=== PATIENT | male | born 1935 | race Caucasian/White ===

== ENCOUNTER → 2020-05-10 09:24 | Outpatient (BNVA) | payer MEDICARE, OTHER, SELFPAY | PROVIDERS: Family Provider Family Medicine; PCP Family Medicine; Visit Provider Urology | DX: C61 Malignant neoplasm of prostate (principal); C67.9 Malignant neoplasm of bladder, unspecified; I48.91 Unspecified atrial fibrillation; Z79.01 Long term (current) use of anticoagulants; Z85.46 Personal history of malignant neoplasm of prostate | CPT/HCPCS: 81003; 84153 ==

== ENCOUNTER → 2020-06-01 10:29 | Outpatient (BNVA) | payer MEDICARE, OTHER, SELFPAY | PROVIDERS: Family Provider Family Medicine; PCP Family Medicine; Visit Provider Urology | DX: C67.9 Malignant neoplasm of bladder, unspecified (principal); Z01.810 Encounter for preprocedural cardiovascular examination | CPT/HCPCS: 87635 ==

== ENCOUNTER 2020-06-05 15:49 | Observation (INO) | payer MEDICARE, OTHER, SELFPAY ==
[2020-06-01 11:22] VITALS: BMI 32.2
--- NOTE | 2020-06-01 11:32 | ECG_ITS ---
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 Measurements Intervals [place] Rate: 53 P: NV: QRS: 35 QRSD: 103 T: 33 QT: 405 QTc: 382 Interpretive Statements Possible ATRIAL FLUTTER/TACHYCARDIA WITH SLOW VENTRICULAR RESPONSE ABNORMAL RHYTHM ECG Compared to ECG 04/23/2017 16:22:55 Atrial fibrillation no longer present ST (T wave) deviation no longer present Electronically Signed On 06-01-2020 20:43:32 CDT by Neyda Toney M.D. [id number]
--- NOTE | 2020-06-01 11:56 | ANES.PREANE2 ---
Pre-Anesthetic Assessment Pre-Anesthetic Assessment: Height/Weight: Height 1.88 m Weight 113.852 kg Preop Diagnosis: Recurrent bladder cancer Proposed Procedure: Operation Date: 06/05/20 17:00 Proposed Procedures p Cystoscopy 89011 C67.9(Not Applicable) - Stevenson De Los Santos MD s Transurethral Resection Bladder Tumor(Not Applicable) - Stevenson De Los Santos MD Familial anesthetic complications: none Social: Social History: Alcohol (2 glasses wine daily) and No tobacco Exam: Pre-Anes Outpt Exam: alert, oriented x 3, clear to auscultation bilaterally and regular rate & rhythm (irreg with Afib rate 53 on EKG) Airway: Submandibular: WNL Cervical ROM: WNL MP: 2 Dentition: Caps and Full Pulmonary: Pulmonary: COPD, NICHOLS, Sleep apnea (cpap) and SOB CV/HEM: CV/HEM: Afib and HTN : : None reported (recurrent bladder tumor) Hepatic: Hepatic: None reported GI: GI: None reported Metabolic: Metabolic: None reported Musc/skel: Musc/skel: Lower Back Pain and OA/DJD Comments: pt on prednisone daily for 1 year Neuropsych: Neuropsych: None reported Anesthetic Plan: ASA status: 3 Anesthesia: Anesthesia Evaluation and General Risk of > 500 ml blood loss (7ml/kg in children): No PFSH Anesthesia PFSH: Medical History Anticoagulant long-term use Arthritis Atrial fibrillation Carotid stenosis, bilateral COPD (chronic obstructive pulmonary disease) Dyslipidemia H/O prostate cancer Transitional cell bladder cancer Surgical History S/P repair of hydrocele Family History Father , AGE 66 Cancer Social History Smoking and tobacco status: former smoker Alcohol intake: current Household members: spouse Marital status: service: Yes branch: [employer] Data Anesthesia Cardiac Studies: No Data to Display
[2020-06-05] VITALS (18 sets, daily range): BP systolic 145–193; BP diastolic 56–103; PULSE 52–101; RESP 14–20; TEMP 36.2–36.9; O2SAT 92–96
[2020-06-05] MEDS: sodium chloride 0.9% 1,000 ML 30 ML IV (11:49)
--- NOTE | 2020-06-05 12:13 | P.ANESUD_ITS ---
Pre-Anesthetic Update Pre-Anesthetic Assessment: Date of Surgery/Procedure: 06/05/20 Preop Mackenzie gnosis: Recurrent bladder cancer Proposed Procedure: Operation Date: 06/05/20 12:50 Proposed Procedures p Cystoscopy 43981 C67.9(Not Applicable) - Stevenson De Los Santos MD s Transurethral Resection Bladder Tumor(Not Applicable) - Stevenson De Los Santos MD Any changes to Pre-Anesthetic Assessment?: No Last Intake: Intake Last Liquid Date 06/05/20 Last Liquid Time 07:00 Last Solid Date 06/04/20 Last Solid Time 19:00 Vitals: Temperature 97.3 F L 06/05/20 11:45 Temperature Source Tympanic 06/05/20 11:45 Pulse Rate 69 06/05/20 11:45 Respiratory Rate 18 06/05/20 11:45 Blood Pressure 186/96 06/05/20 11:45 Blood Pressure Vee n 126 06/05/20 11:45 Pulse Oximetry 96 06/05/20 11:45 Oxygen Delivery Me thod 06/05/20 11:54 Exam: Pre-Anes Outpt Exam: alert, oriented x 3, clear to auscultation bilaterally and regular rate & rhythm Cardiac Studies: No Data to Display
--- NOTE | 2020-06-05 14:26 | P.HPUD_ITS ---
Surgery/Procedure H&P Update DATE OF PROCEDURE: June 05, 2020 DATE H&P PERFORMED: 05/26/20 H&P UPDATE INFORMATION: I have reviewed H&P completed within last 30 days, I have examined patient prior to procedure, No changes to prior documentation and H&P is in [facility] [place] EMR on date indicated CHANGES TO PREVIOUS DOCUMENTATION: Off of aspirin and Eliquis as instructed. PREOP DIAGNOSIS: Recurrent bladder cancer PLANNED PROCEDURE: Operation Date: 06/05/20 12:50 Proposed Procedures p Cystoscopy 84484 C67.9(Not Applicable) - Stevenson De Los Santos MD s Transurethral Resection Bladder Tumor(Not Applicable) - Stevenson De Los Santos MD
--- NOTE | 2020-06-05 14:38 | PM.OP ---
Operative Report Date of procedure: June 05, 2020 Pre-op Diagnosis: Recurrent bladder cancer Post-op diagnosis: same Procedure Done: Cystoscopy transurethral resection of bladder tumor/fulguration of extension into the prostate Pathology: Bladder tumor sampling Surgeon: Magali Anesthesia: General Estimated blood loss: Minimal Urine output: Not measured Complications: None Findings: 1 small tumor on the posterior floor cephalad and medial to the left ureteral orifice Fairly extensive involvement of the bladder neck and the more proximal half of the prostatic tissue circumferentially with transitional cell carcinoma papillary changes. All visible tumor was resected or fulgurated. Resection was limited to roughly the proximal half of the prostate trying to avoid dissection closer to the membranous urethra/verumontanum. Thankfully there was no obvious tumor in those areas. Brief History: Dilip is a very pleasant 84-year-old white male with a history of bladder cancer diagnosed March 2013 with pathology demonstrating low-grade noninvasive TCCA/papilloma lateral to the left ureteral orifice. Placed on surveillance cystoscopy program with no evidence of recurrence for many years. His interval was extended and recently on a 2-year surveillance cystoscopy was found to have a fairly large area of recurrence that involve the bladder neck extending into the prostatic fossa and the mucosa. It appeared to be well differentiated but fairly extensive involvement of the mucosa within the prostatic lumen. Admitted now for TURBT. Procedure: After routine preoperative evaluation examination and obtaining of informed consent he was taken to the operating suite on 06/05/2020 where general anesthesia was administered without difficulty after appropriate timeout was performed, SCDs confirmed to be functioning, preoperative antibiotics administered, beta-ty protocol confirmed. Prepped and draped in usual sterile fashion in dorsolithotomy position paying careful attention to avoiding pressure points. 21 Togolese cystoscope with 30 degree lens was introduced into the urethra meatus and advanced into the bladder under videoscopy. The bladder was examined with both 30 and 70 degree lenses. FINDINGS: The papillary tumor involves circumferential bladder neck extending into the prostatic lumen approximately half the distance toward the verumontanum. Distal to that distinction the mucosa appeared to be normal. It did not involve the verumontanum and none of the work described below was distal to that demarcation. There was also a small tumor in the bladder proper medial and cephalad to the left ureteral orifice. The urethra was then calibrated with Miller sounds and easily accommodated 30 Togolese. 2% lidocaine jelly was instilled into the urethra and a 25 Togolese continuous-flow resectoscope sheath with visual obturator was advanced into the bladder without difficulty. Landmarks were again ascertained. Super loop was utilized to thinly resect the bladder neck tumor on the posterior floor it appeared to extend deeper than just the mucosa. Resection was carried out enough to fully excise all visualized tumor. The circumferential involvement was completely resected. The button probe was then utilized to fulgurate and vaporized to some degree the mucosa/submucosal tissue in the prostatic fossa again avoiding resection much distal to the roughly shelter point at the demarcation of more normal and abnormal mucosa. The resection was more tenuous than usual to avoid the risk of deeply resecting irradiated prostate tissue (and the inherent risk of increased incontinence) but resecting enough to feel confident incomplete excision. The button probe was also utilized to completely fulgurate the small well differentiated appearing papillary tumor lateral and cephalad to the left ureteral orifice. All chips were evacuated from the bladder. The specimen sent for pathologic evaluation. Meticulous hemostasis was obtained. Final inspection showed no specimens remaining in the bladder and hemostasis. Bladder was drained with a 20 Togolese three-way Martinez catheter with 30 cc in the balloon. CBI was initiated with light irrigation. He tolerated procedure well without complications and was awakened in the operating room and returned to the recovery room in stable condition. FINDINGS: 1. All visualized tumor was completely resected or fulgurated. 2. The resection did not extend beyond the mid prostatic point at which point the mucosa of became normal. 3. Bladder drained with Martinez catheter.
[2020-06-05] MEDS: lidocaine 2% Urojet 20 mL TOPICAL (14:59)
[2020-06-05] MEDS: metoprolol tartrate 25 mg Tablet PO (16:21)
[2020-06-05] MEDS: ipratropium-albuterol 3 mL Neb INHALATION ×2 (16:43→20:24)
--- NOTE | 2020-06-05 17:03 | ANE.PACU2 ---
Inpatient post-anesthesia follow up: Airway intact: Yes Vital signs: Temperature 97.1 F Pulse Rate 74 Respiratory Rate 18 Blood Pressure 182/90 Pulse Oximetry 93 Oxygen Delivery Me thod Room Air Oxygen Flow Rate 6 Fraction of Inspir ed Oxygen Hydration adequate: Yes Nausea and vomiting: No Pain level: 2 Mental status: Baseline
[2020-06-05] MEDS: amlodipine 5 mg Tablet PO (17:18)
--- NOTE | 2020-06-05 19:04 | PC.NURSE ---
shift summary patient received from pacu, about 250ml left in first cbi bag. this was infused and the next bag started at 1900. patient has had a total of 850 out totalling 600 urine output. urine clear slight blood tinge noted. cbi fluids barely dripping at this time. patient has had no pain at this time, resting in bed. call light within reach. bedside report given to Domonique CURTIS, and Ruby CURTIS
[2020-06-05] MEDS: ceFAZolin 1,000 MG in sodium chloride 0.9% (plus) 50 ML 100 MG IV (23:39)
--- NOTE | 2020-06-06 03:42 | PC.NURSE ---
CBI Patient placed call light on to notify nurse that the bed was wet. Observed catheter/CBI tubing and CBI was disconnected from the catheter. Patient stated that he thought the catheter was filling up so he attempted to unclamp the irrigation to speed up the flow. Discussed the importance of alerting the nurse with any concerns, and not titrating his own CBI. Urine remained clear yellow without any clots or sediment. Reconnected CBI at a very slow drip rate. Due to the above, unable to determine how much irrigation the patient actually received.
[2020-06-06 03:50] VITALS: BP 169/73; PULSE 50; RESP 18; TEMP 37.1; O2SAT 94
[2020-06-06] MEDS: ceFAZolin 1,000 MG in sodium chloride 0.9% (plus) 50 ML 100 MG IV (06:03)
--- NOTE | 2020-06-06 07:21 | PC.NURSE ---
MITOMYCIN DR MONTEJO AT SIDE TO INJECT RODRIGUEZ CATHETER WITH MITOMYCIN -
--- NOTE | 2020-06-06 07:47 | P.PCN_ITS ---
Other Information: MITOMYCIN INTRAVESICAL instillation 40 mg of mitomycin instilled into the bladder for 1 hour. Atraumatic. Tolerated well. Coding Level of Care Code Acute Shearing Machine Tender for Carisa Edge
--- NOTE | 2020-06-06 07:47 | P.DS_ITS ---
Discharge Providers Date of Admission: 06/05/20 15:49 Date of Discharge: June 06, 2020 Attending Provider at Admission: Stevenson De Los Santos MD Attending Provider at Discharge: Stevenson De Los Santos MD Primary Care Provider: Juanito Clayton DO Diagnoses at Discharge Discharge Diagnosis (1) Transitional cell bladder cancer: Status: Acute Permanent problem details: Recurrent TCCA involving the proximal one half of the prostate and bladder neck. (2) Atrial fibrillation: Status: Acute (3) COPD (chronic obstructive pulmonary disease): Status: Acute (4) H/O prostate cancer: Status: Acute Reason for Visit Reason for Visit: cystoscopy Physical Exam Const: COMMON NORMALS: no acute distress and alert GENERAL APPEARANCE: well kempt and well developed ORIENTATION/CONSCIOUSNESS: not confused HENMT: COMMON NORMALS: normocephalic and atraumatic HEAD & SCALP: normocephalic and atraumatic Eye: COMMON NORMALS: conjunctivae normal and no scleral icterus CONJUNCTIVA: Yes conjunctivae normal Neck/C-Spine: COMMON NORMALS: full ROM GENERAL: Yes normal visual inspection Resp: COMMON NORMALS: normal respiratory effort EFFORT & INSPECTION: No labored and No Actively coughing : BLADDER/KIDNEY EXAM: Yes bladder normal to palpation PENIS: normal penis MEATUS: meatus normal Extremity: COMMON NORMALS: no clubbing, cyanosis or edema Neuro: COMMON NORMALS: no focal motor deficits SENSORIUM/ORIENTATION: Yes alert Psych: COMMON NORMALS: mental status grossly normal, Normal thought process present and cooperative APPEARANCE: Yes grossly normal and Yes well kempt ATTITUDE: Yes calm and Yes engaged THOUGHT PROCESS: Normal thought process present Skin: COMMON NORMALS: no rashes or lesions noted and no jaundice GENERAL SKIN EXAM: no rashes or lesions noted Urinary Catheter Management^: 3-way Urethral CBI: Cath Placed During This Visit: yes Reason for Continuing Indwelling Catheter: Other Urinary Catheter Date of Insertion: 06/05/20 Urinary Catheter Time of Insertion: 15:20 Discharge Data Data Completed and Pending: Pending at discharge Category Date Time Status Pathology: Surgic al [PTH] Routine Pth 06/05/20 15:40 Ordered Vitals: Last Vital Signs Temp 98.7 F 06/06/20 03:50 Pulse 50 L 06/06/20 03:50 Resp 18 06/06/20 03:50 BP 169/73 06/06/20 03:50 Pulse Ox 94 06/06/20 03:50 Discharge Plan Discharge Patient Disposition: Home Condition: Stable Prescriptions: Continued amlodipine 5 mg tablet 5 mg PO DAILY RF: 0 metoprolol tartrate 25 mg tablet 25 mg PO BID RF: 0 prednisone 10 mg tablet 5 - 10 mg PO DAILY RF: 0 albuterol sulfate [ProAir HFA] 90 mcg/actuation HFA aerosol inhaler 2 puff INHALATION Q6H PRN (Reason: Shortness Of Breath) RF: 0 rosuvastatin [Crestor] 40 mg tablet 20 mg PO DAILY RF: 0 ipratropium-albuterol 0.5 mg-3 mg(2.5 mg base)/3 mL solution for nebulization 3 ml INHALATION QID PRN (Reason: Shortness Of Breath) RF: 0 Held Eliquis 5 mg tablet 5 mg PO BID RF: 0 Hold Instructions: Resume on 06/11/20. aspirin [Aspir-81] 81 mg tablet,delayed release (DR/EC) 81 mg PO DAILY RF: 0 Hold Instructions: Resume on 06/11/20. Discharge Orders: Discharge Order (Routine); Ordered 06/06/20 Ordered By: Stevenson De Los Santos Referrals: Stevenson De Los Santos MD [Physician] - 06/08/20 (Voiding trial In 2 months we will do our first surveillance cystoscopy.) Discharge Diet: Usual diet Discharge Activity: Limit activity as instructed Activity Restrictions/Additional Instructions: 1. No lifting >10 pounds for 3 weeks at least. 2. I will see you in the office on for voiding trial. 3. Your first surveillance cystoscopy will be planned for about 2 months. 4. Please call if you have any concerns or questions. The hospital electric pile driver operator can reach me after hours. Discharge Attestations Time Spent in Discharge Care*: less than 30 min Quality Metrics Clinical Quality Measures During this hospital stay, did patient experience: None Coding Level of Care Code Acute Chg FW AR note Diagnoses Transitional cell bladder cancer C67.9 Atrial fibrillation I48.91 COPD (chronic obstructive pulmonary disease) J44.9 H/O prostate cancer Z85.46
[2020-06-06 07:51] VITALS: BP 168/74; PULSE 88; RESP 18; TEMP 36.5; O2SAT 96
[2020-06-06] MEDS: metoprolol tartrate 25 mg Tablet PO (08:20)
[2020-06-06] MEDS: atorvastatin 40 mg Tablet 80 MG PO (08:20)
[2020-06-06] MEDS: predniSONE 10 mg Tablet PO (08:20)
[2020-06-06] MEDS: ipratropium-albuterol 3 mL Neb INHALATION (09:10)
--- NOTE | 2020-06-06 09:11 | PC.NURSE ---
[address] MONTEJO ORDER - OVI WELL
[2020-06-06 09:12] VITALS: PULSE 61; RESP 16; O2SAT 96
--- NOTE | 2020-06-06 10:28 | PC.NURSE ---
EDUCATION EDUCATION GIVEN TO PATIENT REGARDING LEG BAG AND LARGE BAG - PT VERBALIZES UNDERSTANDING OF CATHETER CARE AND CHANGING BAGS
[2020-06-06 11:18] VITALS: PULSE 61; RESP 16; O2SAT 96
--- NOTE | 2020-06-07 18:06 | PC.RESP ---
Pulmonary Rehab information sent to patient.
== END 2020-06-06 11:19 | disposition home or self-care (01) ==
LOC: MEDSURG 15:49
PROVIDERS: Admitting Provider Urology; PCP Family Medicine; Visit Provider Urology
PROC: 0TJB8ZZ Inspection of Bladder, Via Natural or Artificial Opening Endoscopic (ICD-10-PCS; CPT 52000; principal; 2020-06-05 12:40)
PROC: 0TBB8ZZ Excision of Bladder, Via Natural or Artificial Opening Endoscopic (ICD-10-PCS; CPT 51720; 2020-06-05 12:40)
DX: C67.9 Malignant neoplasm of bladder, unspecified (principal); I48.91 Unspecified atrial fibrillation; J44.9 Chronic obstructive pulmonary disease, unspecified; Z85.46 Personal history of malignant neoplasm of prostate; G47.30 Sleep apnea, unspecified; I10 Essential (primary) hypertension; Z79.52 Long term (current) use of systemic steroids; Z87.891 Personal history of nicotine dependence
CPT/HCPCS: 51720; 52235; 88305; 93005; 94640; 94664; G0378; J0690; J1100; J2405; J2704; J2710; J3010; J3490; J7030; J7512; J9280

== ENCOUNTER 2020-06-21 09:59 | Outpatient (CLI) | payer MEDICARE, OTHER, SELFPAY ==
--- NOTE | 2020-06-21 10:04 | USCV_ITS ---
Audreyambrose Cherry Age: 84 Gender: M : 1935 Exam Date: 06/21/2020 10:18 Ordering Phys: Hardeep King M.D ([email or web address]) Technologist: Exam Location: [facility] Indication: HX CCA STENOIS Risk Factors: None Previous Vascular Surgery: Right Brachial BP: / Left Brachial BP: / Right Left Velocity (cm/s) Spectral Plaque Velocity (cm/s) Spectral Plaque Syst/Diast Broadening Syst/Diast Broadening 55.90/ 7.80 Prox CCA 62.50 / 15.40 52.80/ 10.10 Hetro Mid CCA 60.60 / 12.50 Hetro 51.30/ 8.50 Hetro Distal CCA 65.40 / 10.60 Hetro 134.70/26.10 Hetro Prox ICA 423.80/ 82.80 Hetro 161.80/29.60 Hetro Mid ICA 396.30/ 104.30 Hetro 76.20/ 17.10 Distal ICA 91.40 / 21.80 199.00 ECA 175.30 2.89 ICA/CCA 6.48 Antegrade Vertebral Antegrade 40.10/ 9.90 cm/s 42.50/ 11.90 cm/s Bi Subclavian Bi 119.2 82.50 0 FINDINGS Comparison:. 10/13/17. Significant progression of carotid stenosis since 2018. Diffuse bilateral scattered calcified plaque and intimal thickening throughout the common carotid arteries and extending through the bifurcation. Irregular plaque with elevation of velocity, greatest on the left. Antegrade vertebral arteries. CONCLUSIONS Left ICA stenosis 70-99%. Significant progression of stenosis. since 2018. Right ICA stenosis 50-69%. Dr. Carla Polo DO (Electronically Signed) Final Date: 21 June 2020 15:30 S
== END 2020-06-21 10:00 | disposition home or self-care (01) ==
LOC: RAD 10:02
PROVIDERS: PCP Family Medicine; Visit Provider Internal Medicine
DX: I65.23 Occlusion and stenosis of bilateral carotid arteries (principal)
CPT/HCPCS: 93880

== ENCOUNTER 2020-06-27 08:17 | Outpatient (CLI) | payer MEDICARE, OTHER, SELFPAY ==
--- NOTE | 2020-06-27 08:30 | CT_ITS ---
WS: [id number] CT ANGIOGRAM CEREBRAL AND CAROTID ARTERIES HISTORY: I65.23 - Occlusion and stenosis of bilateral carotid arteries TECHNIQUE: CT angiogram is performed of the carotid and cerebral arteries. During arterial injection imaging is obtained from the skull vertex to the aortic arch in 1.25 mm imaging. Coronal and sagittal reformats are submitted. Additional multi planar reformats of the carotid and cerebral arteries are submitted, MIP imaging also reviewed. NASCET criteria utilized. All CT scans at [facility] use at least one of these dose optimization techniques: automated exposure control; mA and/or kV ad justment per patient size (includes targeted exams where dose is matched to clinical indication); or iterative reconstruction. CONTRAST: Omnipaque 350; 95 mL IV. DLP: 2380.51 mGycm COMPARISON: 11/07/2014 and 06/21/[address] head is first performed. There is no hemorrhage. Mild atrophy and chronic ischemic dis ease. Carotid Angiogram: Right carotid: Common carotid artery: Small amount of calcified plaque in the carotid artery. No stenosis. Internal carotid artery: Moderate calcified plaque at the bifurcation causing a mild stenosis. Calcul ated stenosis 37%. External carotid artery: Calcified plaque in the proximal external carotid artery. No occlusion. Left carotid: Common carotid artery: Arises normally from the aorta. No significant plaque or stenosis. Internal carotid artery: Heavy calcified plaque and intimal thickening at the bifurcation extending i nto the proximal internal and external arteries. Calcified plaque at the bifurcation with a calculate d stenosis of 64%. External carotid artery: Moderate calcified plaque proximally. Right vertebral artery: Focal calcified plaque at the origin of the RIGHT vertebral artery consistent with high-grade stenosis. There is no complete stenosis. Small caliber RIGHT vertebral artery as com pared to the LEFT. Left vertebral artery: Mild scattered calcified plaque. Dominant vertebral artery. Subclavian arteries: Mild bilateral atherosclerosis. No occlusions. Upper thorax: Mild biapical pleural thickening and scarring. 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 Osseous structures: Moderate cervical spondylosis. No destructive bone lesions. CEREBRAL ANGIOGRAM: Intracranial vertebral arteries: Small caliber distal RIGHT vertebral artery but it is patent. Very t iny luminal diameter distally. Dominant LEFT vertebral artery. Basilar artery: No significant stenosis or occlusion. No aneurysm. Intracranial Internal carotid arteries: Calcified plaque in the intracranial carotid arteries. No hig h-grade stenosis. Middle cerebral arteries: Normal. Anterior cerebral arteries and ACOM: Normal. Posterior cerebral arteries and PCOM's: Normal. Dural venous sinuses are normally enhancing. Mastoid air cells: Normal. Paranasal sinuses: Normal. Calvarium: Normal. CT/CT angio headneck* [id number] IMPRESSION: 1. Moderate stenosis with calcified plaque at the LEFT extracranial carotid bi furcation and proximal ICA. Stenosis calculated at 64%. Visually the stenosis a ppears slightly greater than 64%. 2. Mild stenosis at the RIGHT ICA at 37%. 3. Mild intracranial atherosclerosis in the carotid arteries but no high-grade stenosis or occlusions. 4. High-grade stenosis involving the origin of the RIGHT vertebral artery alth ough there is no occlusion. The distal RIGHT vertebral artery is very small dipti iber but patent.
[2020-06-27 09:01] LABS: Blood Urea Nitrogen 17 mg/dL (8-23)
[2020-06-27] MEDS: iohexol 350 mg/mL 100 mL Btl IV (09:15)
== END 2020-06-27 08:18 | disposition home or self-care (01) ==
LOC: RADWPI 08:23
PROVIDERS: PCP Family Medicine; Visit Provider Internal Medicine
DX: I65.23 Occlusion and stenosis of bilateral carotid arteries (principal)
CPT/HCPCS: 70496; 70498; 82565; 84520; Q9967

== ENCOUNTER → 2020-08-08 11:22 | Outpatient (BNVA) | payer MEDICARE, OTHER, SELFPAY | PROVIDERS: PCP Family Medicine; Visit Provider Urology | DX: C67.9 Malignant neoplasm of bladder, unspecified (principal); R82.81 Pyuria | CPT/HCPCS: 81003; 87077; 87086; 87184 ==

== ENCOUNTER → 2020-11-08 10:17 | Outpatient (BNVA) | payer MEDICARE, OTHER, SELFPAY | PROVIDERS: PCP Family Medicine; Visit Provider Urology | DX: C67.9 Malignant neoplasm of bladder, unspecified (principal) | CPT/HCPCS: 81003 ==

== ENCOUNTER 2021-01-22 09:20 | Outpatient (CLI) | payer MEDICARE, OTHER, SELFPAY ==
--- NOTE | 2021-01-22 09:30 | USCV_ITS ---
Dilip Will Age: 85 Gender: M : 1935 Exam Date: 01/22/2021 10:07 Ordering Phys: Junito Parks MD (Andy) ([email or web address] [place]) Technologist: IVAN Exam Location: [facility] Indication: occlusion or stenois of bilateral carotid arteries Risk Factors: Previous Vascular Surgery: Right Brachial BP: / Left Brachial BP: / Right Left Velocity (cm/s) Spectral Plaque Velocity (cm/s) Spectral Plaque Syst/Diast Broadening Syst/Diast Broadening 86.00/ 16.50 Prox CCA 71.60 / 12.90 67.30/ 9.90 Mid CCA 44.40 / 10.30 59.80/ 14.00 Distal CCA 45.70 / 9.00 Hetro 110.30/20.90 Hetro Prox ICA 257.70/ 52.60 Hetro 116.90/24.30 Mid ICA 206.60/ 21.80 75.00/ 18.70 Distal ICA 59.00 / 20.50 242.90 ECA 110.20 1.74 ICA/CCA 4.65 Antegrade Vertebral Antegrade 32.90/ 7.90 cm/s 54.70/ 14.50 cm/s Tri Subclavian Tri 88.70 87.20 FINDINGS Comparison 06/21/20 CONCLUSIONS Right ICA stenosis <50%. Mild atheromatous plaque right carotid bulb/ICA. Left ICA stenosis 70-99%. Moderate atheromatous plaque left carotid bulb/ICA. ICA velocities have decreased bilaterally compared to previous. Left ICA stenosis remains above 70%. This could be further evaluated with CTA Normal antegrade Doppler flow noted in the right vertebral artery. Normal antegrade Doppler flow noted in the left vertebral artery. Diego Calvo MD (Electronically Signed) Final Date: 22 January 2021 16:42 S
== END 2021-01-22 09:21 | disposition home or self-care (01) ==
LOC: RAD 09:27
PROVIDERS: PCP Family Medicine; Visit Provider Thoracic Surgery (Cardiothoracic Vascular Surgery)
DX: I65.23 Occlusion and stenosis of bilateral carotid arteries (principal)
CPT/HCPCS: 93880

== ENCOUNTER → 2021-03-20 09:04 | Outpatient (BNVA) | payer MEDICARE, OTHER, SELFPAY | PROVIDERS: PCP Family Medicine; Visit Provider Urology | DX: C67.9 Malignant neoplasm of bladder, unspecified (principal); Z85.46 Personal history of malignant neoplasm of prostate | CPT/HCPCS: 81003 ==

== ENCOUNTER → 2021-07-19 09:17 | Outpatient (BNVA) | payer MEDICARE, OTHER, SELFPAY | PROVIDERS: PCP Family Medicine; Visit Provider Urology | DX: C67.9 Malignant neoplasm of bladder, unspecified; Z85.46 Personal history of malignant neoplasm of prostate | CPT/HCPCS: 52000; 81003; 99212 ==

== ENCOUNTER 2021-09-07 19:45 | Emergency (ER) | payer OTHER, MEDICARE, SELFPAY ==
[2021-09-07 20:01] VITALS: BP 134/72; PULSE 68; RESP 16; TEMP 36.6; O2SAT 94
--- NOTE | 2021-09-07 23:22 | ED_ITS ---
Documented by User: DAVID Raygoza 09/09/21 00:00 HPI - Wound/Laceration General: Chief Complaint: Wound/Laceration Stated Complaint: VERICOSE VEIN REP Time Seen by Provider: 09/07/21 22:33 History of Present Illness: Patient is 86-year-old male who comes to the ED with varicose vein bleeding on left lower extremity. Patient says he was doing a shower earlier today and was scrubbing his leg and scrubbed too hard against a large varicose vein causing it ruptures are bleeding. Patient takes Eliquis daily. He describes there being some pulsatile bleeding from his leg but he finally was able to control once he applied a pressure bandage. Associated symptoms: Denies chills, fever(s), nausea or vomiting Review of Systems Const: Denies: fever(s), chills or fatigue Eyes: Denies: change in vision or eye discomfort ENMT: Denies: throat pain, odynophagia, nasal discharge or nasal congestion Card: Denies: chest pain, palpitations, edema, swelling of feet/ankles, dyspnea on exertion or orthopnea Resp: Denies: dyspnea, productive cough or non-productive cough GI: Denies: abdominal pain, nausea, vomiting, diarrhea, constipation or hematochezia : Denies: flank pain, difficulty urinating, dysuria or hematuria Musc: Denies: neck pain, back pain or extremity swelling Skin/Breast: Reports: other (Actively bleeding varicose swelling on the left lower leg); Denies: rash or new lesions Neuro: Denies: headache(s), numbness in extremities or weakness in extremities PFSH ED PFSH: Medical History Anticoagulant long-term use Arthritis Atrial fibrillation Carotid stenosis, bilateral COPD (chronic obstructive pulmonary disease) Dyslipidemia H/O prostate cancer 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 Surgical History S/P repair of hydrocele Family History Father , AGE 66 Cancer Social History Smoking and tobacco status: former smoker Quit status (tobacco): has quit using tobacco Year quit tobacco: 1977 Alcohol intake: current Alcohol intake frequency: 0-2 Drinks per Day Alcohol type: wine Household members: spouse Marital status: service: Yes branch: [employer] Current occupational status: retired History of recent travel: No Physical Exam Const: COMMON NORMALS: no acute distress, patient oriented x3 and alert GENERAL APPEARANCE: cooperative and comfortable HENMT: COMMON NORMALS: normocephalic HEAD & SCALP: normocephalic MOUTH: Normal oral and palatal mucosa present THROAT: posterior oropharynx normal and uvula midline Neck/C-Spine: COMMON NORMALS: supple GENERAL: Yes normal visual inspection Resp: COMMON NORMALS: normal respiratory effort, No retractions, No use of accessory muscles and clear to auscultation bilaterally AUSCULTATION: clear to auscultation bilaterally Cardio: COMMON NORMALS: regular rate, regular rhythm, S1 normal heart sound present, S2 normal heart sound present, No gallops present (Cardio), No clicks present (Cardio), No murmurs present (Cardio) and Peripheral pulses 2+ throughout RATE: regular rate RHYTHM: regular rhythm HEART SOUNDS: S1 normal heart sound present and S2 normal heart sound present PERIPHERAL PULSES: Peripheral pulses 2+ throughout GI: COMMON NORMALS: Normal to inspection, nondistended, normoactive bowel sounds present, Soft to palpation, non-tender and no masses PALPATION: Yes Soft to palpation : COMMON NORMALS: Yes no CVA tenderness BLADDER/KIDNEY EXAM: Yes no CVA tenderness Back/Pelvis: COMMON NORMALS: no CVA tenderness Extremity: NARRATIVE EXTREMITY EXAM: Left lower leg?medial aspect of left lower leg patient has a bleeding and ruptured varicose vein. It is actively bleeding and continues bleeding even after pressure bandage applied. GENERAL: Yes normal exam except as noted Neuro: COMMON NORMALS: patient oriented x3 and moves all extremities SENSORIUM/ORIENTATION: Yes alert Skin: GENERAL SKIN EXAM: dry skin Procedures Laceration Laceration 1: Site: lower extremity (Medial aspect of left lower leg) Side (If applicable): left Size (cm): 0.5 Description: linear (Ruptured varicose vein) Depth: simple, single layer Local Anesthetic: lidocaine 1% and with epi Amount of anesthesia used (mL): 3 Skin layer closed with: vicryl Size (cm): 4-0 Number of sutures: 4 Technique: simple, interrupted (2 simple) and other (To figure 8 sutures placed) Course Vital Signs: Vital signs: Vital Signs Temperature 98.1 F 09/08/21 01:10 Pulse Rate 71 09/08/21 01:10 Respiratory Rate 18 09/08/21 01:10 Blood Pressure 129/78 09/08/21 01:10 Pulse Oximetry 95 09/08/21 01:10 MDM - Wound/Laceration Medical Decision Making Patient 86-year-old male comes to the ED with a ruptured and bleeding varicose vein on left lower leg. Applied pressure bandage and silver nitrate on bleeding did not work. I then used lidocaine 1% with epi and injected around bleeding site and then placed 2 Vicryl [id number] sutures and 2-0 Vicryl simple sutures to close up bleeding site and control the bleeding. See procedural note for details. Bleeding then stopped after sutures placed. I then put some Dermabond over bleeding site to ensure closure and help with risk of rebleeding. Patient was watched for approximately 30 minutes and he had no rebleeding from leg. CBC was unremarkable. Patient was stable for discharge home and told to follow-up with his PCP in the next week for reevaluation. Nurse applied bandage over bleeding site. Return to ED precautions given. Patient understood and agreed with plan. Lab Data I reviewed the patient's lab results. : 09/08/21 00:11 Laboratory Results WBC 8.7 10^3/uL (4.0-10.0) 09/08/21 00:11 RBC 4.65 10^6/uL (4.1-5.3) 09/08/21 00:11 Hgb 14.7 g/dL (11.7-16.6) 09/08/21 00:11 Hct 43.8 % (42.0-52.0) 09/08/21 00:11 MCV 94.2 fl (80-94) H 09/08/21 00:11 MCH 31.6 pg (28.0-34.0) 09/08/21 00:11 MCHC 33.6 g/dL (30.0-36.0) 09/08/21 00:11 RDW 13.6 % (12.1-15.1) 09/08/21 00:11 Plt Count 154 10^3/cmm (130-400) 09/08/21 00:11 MPV 11.2 fL (7.4-10.4) H 09/08/21 00:11 Neut % (Auto) 61.7 % 09/08/21 00:11 Lymph % (Auto) 25.0 % 09/08/21 00:11 [place] % (Auto) 9.1 % 09/08/21 00:11 Eos % (Auto) 2.7 % 09/08/21 00:11 Baso % (Auto) 0.7 % 09/08/21 00:11 Neut # (Auto) 5.35 10^3/uL (1.8-7.7) 09/08/21 00:11 Lymph # (Auto) 2.2 10^3/uL (0.8-4.8) 09/08/21 00:11 [place] # (Auto) 0.8 10^3/uL (0.2-0.9) 09/08/21 00:11 Eos # (Auto) 0.2 10^3/uL (0.0-0.8) 09/08/21 00:11 Baso # (Auto) 0.1 10^3/uL (0.0-0.1) 09/08/21 00:11 Nucleated RBC % (auto) 0 % 09/08/21 00:11 Nucleated RBCs # 0.0 /100WBC 09/08/21 00:11 Discharge Plan Discharge Patient Disposition: Home Clinical Impression: Bleeding from varicose vein Condition: Stable Prescriptions: No Action amlodipine 5 mg tablet 5 mg PO DAILY 0RF metoprolol tartrate 25 mg tablet 25 mg PO BID 0RF prednisone 10 mg tablet 5 - 10 mg PO DAILY 0RF Eliquis 5 mg tablet 5 mg PO BID 0RF Hold Instructions: Resume on 06/11/20. albuterol sulfate [ProAir HFA] 90 mcg/actuation HFA aerosol inhaler 2 puff INHALATION Q6H PRN (Reason: Shortness Of Breath) 0RF aspirin [Aspir-81] 81 mg tablet,delayed release (DR/EC) 81 mg PO DAILY 0RF Hold Instructions: Resume on 06/11/20. rosuvastatin [Crestor] 40 mg tablet 20 mg PO DAILY 0RF ipratropium-albuterol 0.5 mg-3 mg(2.5 mg base)/3 mL solution for nebulization 3 ml INHALATION QID PRN (Reason: Shortness Of Breath) 0RF Discharge Orders: Discharge ED (Routine); Ordered 09/08/21 Ordered By: Ken Sawyer Referrals: Juanito Clayton DO [Primary Care Provider] - Discharge Diet: Regular Discharge Activity: Increase activity as tolerated Activity Restrictions/Additional Instructions: Follow-up with medical provider as directed in the next 3 to 5 days for reevaluation. Keep bandage over bleeding site for the next couple days. Clean around the bleeding site with soap and water daily. Watch for any signs of infection such as redness, swelling, puslike drainage or warmth around bleeding site. Continue taking all home medications as previously prescribed. Return to the ER or your medical provider if condition worsens. Please read and understand discharge instructions. Thank you for choosing [facility] for your healthcare needs today. Please realize this is an emergency room and that we are providing you with a medical screening exam and this may not be complete and all inclusive of all the testing and or work up that you may need to determine your ailment or severity of your illness. It is very important that you follow up as instructed or that you return to the Emergency Department should you have concerns or if your condition changes or worsens in any way. 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 Surgical History S/P repair of hydrocele Family History Father , AGE 66 Cancer Social History Smoking and tobacco status: former smoker Quit status (tobacco): has quit using tobacco Year quit tobacco: 1977 Alcohol intake: current Alcohol intake frequency: 0-2 Drinks per Day Alcohol type: wine Household members: spouse Marital status: service: Yes branch: [employer] Current occupational status: retired History of recent travel: No Course Vital Signs: Vital signs: Vital Signs Temperature 98.1 F 09/08/21 01:10 Pulse Rate 71 09/08/21 01:10 Respiratory Rate 18 09/08/21 01:10 Blood Pressure 129/78 09/08/21 01:10 Pulse Oximetry 95 09/08/21 01:10 MDM - Wound/Laceration Medical Decision Making Patient 86-year-old male comes to the ED with a ruptured and bleeding varicose vein on left lower leg. Applied pressure bandage and silver nitrate on bleeding did not work. I then used lidocaine 1% with epi and injected around bleeding site and then placed 2 Vicryl [id number] sutures and 2-0 Vicryl simple sutures to close up bleeding site and control the bleeding. See procedural note for details. Bleeding then stopped after sutures placed. I then put some Dermabond over bleeding site to ensure closure and help with risk of rebleeding. Patient was watched for approximately 30 minutes and he had no rebleeding from leg. CBC was unremarkable. Patient was stable for discharge home and told to follow-up with his PCP in the next week for reevaluation. Nurse applied bandage over bleeding site. Return to ED precautions given. Patient understood and ag miquel with plan. This patient was originally seen by Mr. Digna PA-C. I have seen the patient as well. I agree with his history, evaluation, and treatment. Lab Data : 09/08/21 00:11 Laboratory Results WBC 8.7 10^3/uL (4.0-10.0) 09/08/21 00:11 RBC 4.65 10^6/uL (4.1-5.3) 09/08/21 00:11 Hgb 14.7 g/dL (11.7-16.6) 09/08/21 00:11 Hct 43.8 % (42.0-52.0) 09/08/21 00:11 MCV 94.2 fl (80-94) H 09/08/21 00:11 MCH 31.6 pg (28.0-34.0) 09/08/21 00:11 MCHC 33.6 g/dL (30.0-36.0) 09/08/21 00:11 RDW 13.6 % (12.1-15.1) 09/08/21 00:11 Plt Count 154 10^3/cmm (130-400) 09/08/21 00:11 MPV 11.2 fL (7.4-10.4) H 09/08/21 00:11 Neut % (Auto) 61.7 % 09/08/21 00:11 Lymph % (Auto) 25.0 % 09/08/21 00:11 Cr[place]enden % (Auto) 9.1 % 09/08/21 00:11 Eos % (Auto) 2.7 % 09/08/21 00:11 Baso % (Auto) 0.7 % 09/08/21 00:11 Neut # (Auto) 5.35 10^3/uL (1.8-7.7) 09/08/21 00:11 Lymph # (Auto) 2.2 10^3/uL (0.8-4.8) 09/08/21 00:11 [place]enden # (Auto) 0.8 10^3/uL (0.2-0.9) 09/08/21 00:11 Eos # (Auto) 0.2 10^3/uL (0.0-0.8) 09/08/21 00:11 Baso # (Auto) 0.1 10^3/uL (0.0-0.1) 09/08/21 00:11 Nucleated RBC % (auto) 0 % 09/08/21 00:11 Nucleated RBCs # 0.0 /100WBC 09/08/21 00:11 Discharge Plan Discharge Patient Disposition: Home Clinical Impression: Bleeding from varicose vein Condition: Stable Prescriptions: No Action amlodipine 5 mg tablet 5 mg PO DAILY 0RF metoprolol tartrate 25 mg tablet 25 mg PO BID 0RF prednisone 10 mg tablet 5 - 10 mg PO DAILY 0RF Eliquis 5 mg tablet 5 mg PO BID 0RF Hold Instructions: Resume on 06/11/20. albuterol sulfate [ProAir HFA] 90 mcg/actuation HFA aerosol inhaler 2 puff INHALATION Q6H PRN (Reason: Shortness Of Breath) 0RF aspirin [Aspir-81] 81 mg tablet,delayed release (DR/EC) 81 mg PO DAILY 0RF Hold Instructions: Resume on 06/11/20. rosuvastatin [Crestor] 40 mg tablet 20 mg PO DAILY 0RF ipratropium-albuterol 0.5 mg-3 mg(2.5 mg base)/3 mL solution for nebulization 3 ml INHALATION QID PRN (Reason: Shortness Of Breath) 0RF Discharge Orders: Discharge ED (Routine); Ordered 09/08/21 Ordered By: Ken Sawyer Referrals: Juanito Clayton, [Primary Care Provider] - Discharge Diet: Regular Discharge Activity: Increase activity as tolerated Activity Restrictions/Additional Instructions: Follow-up with medical provider as directed in the next 3 to 5 days for reevaluation. Keep bandage over bleeding site for the next couple days. Clean around the bleeding site with soap and water daily. Watch for any signs of infection such as redness, swelling, puslike drainage or warmth around bleeding site. Continue taking all home medications as previously prescribed. Return to the ER or your medical provider if condition worsens. Please read and understand discharge instructions. Thank you for choosing [facility] for your healthcare needs today. Please realize this is an emergency room and that we are providing you with a medical screening exam and this may not be complete and all inclusive of all the testing and or work up that you may need to determine your ailment or severity of your illness. It is very important that you follow up as instructed or that you return to the Emergency Department should you have concerns or if your condition changes or worsens in any way. Coding Level of Care Code ED Sales Designer for Carisa Edge Exam Comprehensive
[2021-09-08 00:20] LABS: Basophils # 0.1 10^3/uL (0.0-0.1); Basophils % 0.7 %; Eosinophils # 0.2 10^3/uL (0.0-0.8); Eosinophils % 2.7 %; Hematocrit 43.8 % (42.0-52.0); Hemoglobin 14.7 g/dL (11.7-16.6); Lymphocytes # 2.2 10^3/uL (0.8-4.8); Mean Corpuscular HGB Conc 33.6 g/dL (30.0-36.0); Mean Corpuscular Hemoglobin 31.6 pg (28.0-34.0); Mean Corpuscular Volume 94.2 fl (80-94); Mean Platelet Volume 11.2 fL (7.4-10.4); Monocytes # 0.8 10^3/uL (0.2-0.9); Monocytes % 9.1 %; Neutrophils # 5.35 10^3/uL (1.8-7.7); Neutrophils % 61.7 %; Nucleated Red Blood Cells % 0 %; Platelet Count 154 10^3/cmm (130-400); Red Blood Count 4.65 10^6/uL (4.1-5.3); Red Cell Distribution Width 13.6 % (12.1-15.1); White Blood Count 8.7 10^3/uL (4.0-10.0)
[2021-09-08] MEDS: silver nitrate applicator 1 EACH TOPICAL (00:55)
[2021-09-08 01:10] VITALS: BP 129/78; PULSE 71; RESP 18; TEMP 36.7; O2SAT 95
--- NOTE | 2021-09-08 03:09 | PC.NURSE ---
0105- patients left lower leg wrapped with kerlix and guaze . no bleeding noted upon wrapping of extremity. patient in no obvious distress. patient given supplies for home until able to see provider. patient denies questions/concerns upon teaching.
== END 2021-09-08 01:15 | disposition home or self-care (01) ==
PROVIDERS: Emergency Provider Physician Assistant; PCP Family Medicine
DX: I83.892 Varicose veins of left lower extremity with other complications (principal); Z79.01 Long term (current) use of anticoagulants; Z79.82 Long term (current) use of aspirin; J44.9 Chronic obstructive pulmonary disease, unspecified; E78.5 Hyperlipidemia, unspecified; Z85.46 Personal history of malignant neoplasm of prostate; Z85.51 Personal history of malignant neoplasm of bladder; Z87.891 Personal history of nicotine dependence
CPT/HCPCS: 12001; 85025; 99283

== ENCOUNTER → 2021-11-28 11:51 | Outpatient (BNVA) | payer MEDICARE, OTHER, SELFPAY | PROVIDERS: PCP Family Medicine; Visit Provider Family Medicine | DX: M19.90 Unspecified osteoarthritis, unspecified site (principal); J44.9 Chronic obstructive pulmonary disease, unspecified; I48.91 Unspecified atrial fibrillation; E78.5 Hyperlipidemia, unspecified; Z79.01 Long term (current) use of anticoagulants | CPT/HCPCS: 80053; 80061; 85025 ==

== ENCOUNTER → 2022-01-22 16:00 | Outpatient (BNVA) | payer MEDICARE, OTHER, SELFPAY | PROVIDERS: PCP Family Medicine; Visit Provider Urology | DX: C67.9 Malignant neoplasm of bladder, unspecified (principal) | CPT/HCPCS: 52000; 81003; 88112 ==

== ENCOUNTER → 2022-02-13 13:19 | Outpatient (BNVA) | payer MEDICARE, OTHER, SELFPAY | PROVIDERS: PCP Family Medicine; Visit Provider Urology | DX: C67.9 Malignant neoplasm of bladder, unspecified (principal) | CPT/HCPCS: 81003 ==

== ENCOUNTER → 2022-02-27 12:53 | Outpatient (BNVA) | payer MEDICARE, OTHER, SELFPAY | PROVIDERS: PCP Family Medicine; Visit Provider Urology | DX: C67.9 Malignant neoplasm of bladder, unspecified (principal) | CPT/HCPCS: 52224; 81003 ==

== ENCOUNTER 2022-04-05 12:08 | Outpatient (CLI) | payer MEDICARE, SELFPAY ==
--- NOTE | 2022-04-05 12:15 | USCV_ITS ---
Dilip Will Age: 86 Gender: M : 1935 Exam Date: 04/05/2022 12:22 Ordering Phys: Junito Parks MD (Andy) ([email or web address] [place]) Technologist: CT [place] [facility] [place]: cca disease Risk Factors: Previous Vascular Surgery: Right Brachial BP: / Left Brachial BP: / Right Left Velocity (cm/s) Spectral Plaque Velocity (cm/s) Spectral Plaque Syst/Diast Broadening Syst/Diast Broadening 64.30/ 12.60 Prox CCA 81.60 / 17.60 63.50/ 9.40 Mid CCA 71.70 / 17.60 64.40/ 9.20 Kofi Distal CCA 58.10 / 11.10 Hetro 111.90/14.00 Hetro Prox ICA 304.20/ 41.00 Hetro 85.40/ 17.10 Mid ICA 85.40 / 15.90 Hetro 85.40/ 18.80 Distal ICA 58.90 / 8.80 252.90 ECA 293.90 1.74 ICA/CCA 3.73 Antegrade Vertebral Antegrade 41.90/ 6.20 cm/s 49.60/ 8.80 cm/s Bi Subclavian Bi 124.6 194.0 0 0 FINDINGS comp 01/22/21 CONCLUSIONS Right ICA stenosis <50%. Mild atheromatous plaque right carotid bulb/ICA. Left ICA stenosis 70-99%. Moderate atheromatous plaque left carotid bulb/ICA. Increased Left ICA velocities. Recommend CTA. Normal antegrade Doppler flow noted in the right vertebral artery. Normal antegrade Doppler flow noted in the left vertebral artery. Diego Calvo MD (Electronically Signed) Final Date: 05 April 2022 13:42 S
== END 2022-04-05 12:09 | disposition home or self-care (01) ==
LOC: RAD 12:10
PROVIDERS: PCP Family Medicine; Visit Provider Thoracic Surgery (Cardiothoracic Vascular Surgery)
DX: I65.23 Occlusion and stenosis of bilateral carotid arteries (principal)
CPT/HCPCS: 93880

== ENCOUNTER → 2022-04-18 09:17 | Outpatient (BNVA) | payer MEDICARE, SELFPAY | PROVIDERS: PCP Family Medicine; Visit Provider Thoracic Surgery (Cardiothoracic Vascular Surgery) | DX: I65.23 Occlusion and stenosis of bilateral carotid arteries (principal); Z87.891 Personal history of nicotine dependence | CPT/HCPCS: 99213 ==

== ENCOUNTER → 2022-04-23 11:45 | Outpatient (BNVA) | payer MEDICARE, SELFPAY | PROVIDERS: PCP Family Medicine; Visit Provider Family Medicine | DX: M19.90 Unspecified osteoarthritis, unspecified site (principal); J44.9 Chronic obstructive pulmonary disease, unspecified; I48.91 Unspecified atrial fibrillation; Z79.01 Long term (current) use of anticoagulants; E78.5 Hyperlipidemia, unspecified; Z85.828 Personal history of other malignant neoplasm of skin; G47.33 Obstructive sleep apnea (adult) (pediatric); Z99.89 Dependence on other enabling machines and devices | CPT/HCPCS: 80053; 80061; 85025 ==

== ENCOUNTER → 2022-04-30 14:09 | Outpatient (BNVA) | payer MEDICARE, SELFPAY | PROVIDERS: PCP Family Medicine; Visit Provider Urology | DX: C67.9 Malignant neoplasm of bladder, unspecified (principal) | CPT/HCPCS: 52224; 81003 ==

== ENCOUNTER → 2022-07-24 14:04 | Outpatient (BNVA) | payer MEDICARE, SELFPAY | PROVIDERS: PCP Family Medicine; Visit Provider Urology | DX: C67.9 Malignant neoplasm of bladder, unspecified (principal) | CPT/HCPCS: 52000; 81003 ==

== ENCOUNTER 2022-10-08 10:36 | Outpatient (CLI) | payer MEDICARE, SELFPAY ==
--- NOTE | 2022-10-08 11:00 | USCV_ITS ---
Dilip Will Age: 87 Gender: M : 1935 Exam Date: 10/08/2022 10:52 Ordering Phys: Junito Parks MD (Andy) ([email or web address] [email or web address]) Technologist: Rosalva [place]am [place] [facility] [place] Indication: carotid stenosis Risk Factors: COPD Previous Vascular Surgery: none Right Brachial BP: / Left Brachial BP: / Right Left Velocity (cm/s) Spectral Plaque Velocity (cm/s) Spectral Plaque Syst/Diast Broadening Syst/Diast Broadening 48.60/ 8.50 Prox CCA 62.80 / 13.20 53.90/ 7.90 Mid CCA 43.60 / 12.00 58.50/ 9.90 Distal CCA 46.60 / 9.30 89.40/ 15.80 Kofi Prox ICA 301.40/ 31.10 Kofi 126.70/14.10 Kofi Mid ICA 257.90/ 15.50 74.90/ 21.00 Distal ICA 65.10 / 13.20 268.90 Kofi ECA 525.10 Mod Kofi 2.17 ICA/CCA 4.80 Antegrade Vertebral Antegrade 60.60/ 9.30 cm/s 89.80/ 8.20 cm/s Tri Subclavian Tri 104.7 91.50 0 FINDINGS Comparison:. 04/05/22 Diffuse bilateral scattered calcified plaque and intimal thickening throughout the common carotid arteries and extending through the bifurcation. Mild progression of velocity bilateral ICA's. Antegrade vertebral arteries. Varaiable waveforms from cardiac arrhythmia. CONCLUSIONS Left ICA stenosis 70-99%. Right ICA stenosis < 50%. Mild progression of velocities since the most recent exam. Dr. Carla Polo DO (Electronically Signed) Final Date: 08 October 2022 11:51 S
== END 2022-10-08 10:37 | disposition home or self-care (01) ==
LOC: RAD 10:40
PROVIDERS: PCP Family Medicine; Visit Provider Thoracic Surgery (Cardiothoracic Vascular Surgery)
DX: I65.23 Occlusion and stenosis of bilateral carotid arteries (principal)
CPT/HCPCS: 93880

== ENCOUNTER → 2022-10-22 15:18 | Outpatient (BNVA) | payer MEDICARE, SELFPAY | PROVIDERS: PCP Family Medicine; Visit Provider Family Medicine | DX: C67.9 Malignant neoplasm of bladder, unspecified (principal); E78.5 Hyperlipidemia, unspecified; J44.9 Chronic obstructive pulmonary disease, unspecified; M19.90 Unspecified osteoarthritis, unspecified site; Z13.6 Encounter for screening for cardiovascular disorders | CPT/HCPCS: 80053; 80061; 85025 ==

== ENCOUNTER → 2022-10-31 10:34 | Outpatient (BNVA) | payer MEDICARE, SELFPAY | PROVIDERS: PCP Family Medicine; Visit Provider Thoracic Surgery (Cardiothoracic Vascular Surgery) | DX: I65.23 Occlusion and stenosis of bilateral carotid arteries (principal); L03.115 Cellulitis of right lower limb; Z79.01 Long term (current) use of anticoagulants; Z87.891 Personal history of nicotine dependence | CPT/HCPCS: 99213 ==

== ENCOUNTER → 2022-11-12 14:47 | Outpatient (BNVA) | payer MEDICARE, SELFPAY | PROVIDERS: PCP Family Medicine; Visit Provider Nurse Practitioner Family | DX: C44.612 Basal cell carcinoma of skin of right upper limb, including shoulder (principal); L57.0 Actinic keratosis; L82.0 Inflamed seborrheic keratosis; L81.4 Other melanin hyperpigmentation; L57.8 Other skin changes due to chronic exposure to nonionizing radiation | CPT/HCPCS: 11102; 17000; 17110; 99213 ==

== ENCOUNTER → 2022-11-21 09:34 | Outpatient (BNVA) | payer MEDICARE, SELFPAY | PROVIDERS: PCP Family Medicine; Visit Provider Dermatology | DX: C44.612 Basal cell carcinoma of skin of right upper limb, including shoulder (principal) | CPT/HCPCS: 11603; 12032 ==

== ENCOUNTER → 2023-02-19 08:50 | Outpatient (BNVA) | payer MEDICARE, SELFPAY | PROVIDERS: PCP Family Medicine; Visit Provider Nurse Practitioner Family | DX: L57.0 Actinic keratosis (principal); L82.0 Inflamed seborrheic keratosis; L57.8 Other skin changes due to chronic exposure to nonionizing radiation; L81.4 Other melanin hyperpigmentation; L82.1 Other seborrheic keratosis; Z85.828 Personal history of other malignant neoplasm of skin | CPT/HCPCS: 17000; 17110; 99213 ==

== ENCOUNTER → 2023-03-27 16:28 | Outpatient (BNVA) | payer MEDICARE, SELFPAY | PROVIDERS: PCP Family Medicine; Visit Provider Internal Medicine Cardiovascular Disease | DX: R07.9 Chest pain, unspecified (principal); I65.23 Occlusion and stenosis of bilateral carotid arteries; I50.9 Heart failure, unspecified; I48.91 Unspecified atrial fibrillation; E78.5 Hyperlipidemia, unspecified; I10 Essential (primary) hypertension; R01.1 Cardiac murmur, unspecified; Z79.01 Long term (current) use of anticoagulants | CPT/HCPCS: 93005; 99215 ==

== ENCOUNTER 2023-04-02 09:29 | Outpatient (CLI) | payer MEDICARE, SELFPAY ==
--- NOTE | 2023-04-02 09:45 | USCV_ITS ---
Dilip Will Age: 87 Gender: M : 1935 Exam Date: 04/02/2023 09:45 Ordering Phys: Junito Parks MD (Andy) ([email or web address] [place]) Technologist: LEONEL Exam Location: [facility] [place] Indication: Stenosis Risk Factors: Previous Vascular Surgery: Right Brachial BP: / Left Brachial BP: / Right Left Velocity (cm/s) Spectral Plaque Velocity (cm/s) Spectral Plaque Syst/Diast Broadening Syst/Diast Broadening 47.30/ 13.10 Prox CCA 71.20 / 12.60 47.30/ 8.50 Mid CCA 50.40 / 12.00 55.20/ 10.50 Distal CCA 44.40 / 14.50 55.10/ 15.40 Prox ICA 153.20/ 57.20 87.10/ 18.70 Mid ICA 81.90 / 22.90 72.80/ 18.70 Distal ICA 60.10 / 14.20 221.30 ECA 464.80 1.58 ICA/CCA 2.15 Antegrade Vertebral Bi- directiona l 37.50/ 7.90 cm/s 41.90/ 10.10 cm/s Tri Subclavian Tri 94.60 226.7 0 FINDINGS comp 10/08/22 CONCLUSIONS Right ICA stenosis <50%. Mild atheromatous plaque right carotid bulb/ICA. Left ICA stenosis 50-69%. Mild atheromatous plaque left carotid bulb/ICA. Velocities decreased compared to previous. Recommend correlation with interval CEA. Severe stenosis left ECA. Normal antegrade Doppler flow noted in the right vertebral artery. Normal antegrade Doppler flow noted in the left vertebral artery. Diego Calvo MD (Electronically Signed) Final Date: 02 April 2023 10:57 S
== END 2023-04-02 09:30 | disposition home or self-care (01) ==
LOC: RAD 09:30
PROVIDERS: PCP Family Medicine; Visit Provider Thoracic Surgery (Cardiothoracic Vascular Surgery)
DX: I65.23 Occlusion and stenosis of bilateral carotid arteries (principal)
CPT/HCPCS: 93880

== ENCOUNTER 2023-04-03 14:31 | Outpatient (CLI) | payer MEDICARE, SELFPAY ==
--- NOTE | 2023-04-03 15:00 | USCV_ITS ---
Dilip Will Age: 87 Gender: M : 1935 Exam Date: 04/03/2023 14:45 Ordering Phys: Neyda Toney MD ([email or web address]) Technologist: [place] [facility] [place]: murmur BP: 135 / 78 HR: 65 Rhythm: Sinus Technical Quality: Adequate MEASUREMENTS (Male / Female) Normal Values 2D ECHO LV Diastolic Diameter PLAX 6.0 cm 4.2 - 5.9 / 3.9 - 5.3 cm LV Systolic Diameter PLAX 3.0 cm IVS Diastolic Thickness 1.2 cm 0.6 - 1.0 / 0.6 - 0.9 cm IVS Systolic Thickness 1.7 cm LVPW Diastolic Thickness 1.0 cm 0.6 - 1.0 / 0.6 - 0.9 cm LVPW Systolic Thickness 1.3 cm LVOT Diameter 2.0 cm LV Ejection Fraction 2D Teich 79.3 % LV Ejection Fraction MOD 2C 64.4 % LV Ejection Fraction 2C AL 65.6 % LA Diameter 4.7 cm IVC Diameter 2.2 cm M-MODE Aortic Annulus Diameter 3.3 cm LA Ao Ratio MM 1.5 MV E Point Septal Separation 1.0 cm DOPPLER AV Peak Velocity 422.0 cm/s LVOT Peak Velocity 107.0 cm/s AV Area Cont Eq vti 0.9 cm squared AV Area Cont Eq pk 0.8 cm squared MV Area PHT 3.1 cm squared Mitral E to A Ratio 2.3 MV E' Velocity 70.0 cm/s Mitral E to MV E' Ratio 7.5 Mitral E to LV E' Lateral Ratio 6.3 Mitral E to LV E' Septal Ratio 9.3 TR Peak Velocity 212.0 cm/s TR Peak Gradient 18.0 mmHg TV Peak E Velocity 100.0 cm/s Right Atrial Pressure 3.0 mmHg Pulmonary Artery Systolic Pressu 21.0 mmHg RV Acceleration Time 0.2 s FINDINGS Left Ventricle Normal left ventricular size and systolic function, EF 67 %. No gross wall motion abnormalities. Mild concentric left ventricular hypertrophy Right Ventricle The right ventricle is normal in size and function. Right Atrium The right atrium is normal in size. Left Atrium Mildly increased left atrial size. Mitral Valve Thickened mitral valve. Moderate mitral annular calcification. Aortic Valve Severe aortic valve stenosis with a peak velocity of 4.9 m/s, peak gradient of 99, mean gradient of 41 and a valve area of 0.74 cm squared. Valve index of 0.3 Tricuspid Valve No gross abnormalities noted Pulmonic Valve Pulmonic valve not well visualized. Pericardium Normal pericardium without effusion. Aorta Normal ascending aorta dimension. IVC The inferior vena cava appears normal. CONCLUSIONS Mild biatrial enlargementNormal left ventricular size and systolic function, EF 67 %. No gross wall motion abnormalities. Mild concentric left ventricular hypertrophy. Severe aortic valve stenosis with a peak velocity of 4.9 m/s, peak gradient of 99, mean gradient of 41 and a valve area of 0.74 cm squared. Valve index of 0.3. There is no pericardial effusion. There are no intracardiac masses. No similar previous studies are available for comparison Dr eNyda Toney MD [facility] (Electronically Signed) Final Date: 05 April 2023 15:51 S
== END 2023-04-03 14:32 | disposition home or self-care (01) ==
PROVIDERS: PCP Family Medicine; Visit Provider Internal Medicine Cardiovascular Disease
DX: I35.0 Nonrheumatic aortic (valve) stenosis (principal); R06.09 Other forms of dyspnea; I51.7 Cardiomegaly
CPT/HCPCS: 93306

== ENCOUNTER 2023-04-09 14:44 | Outpatient (CLI) | payer MEDICARE, SELFPAY ==
--- NOTE | 2023-04-09 15:00 | CT_ITS ---
WS: [id number] CT ANGIOGRAM CAROTID ARTERIES HISTORY: carotid stenosis TECHNIQUE: CT angiogram is performed of the carotid arteries. During arterial injection imaging is ob tained from the skull base to the aortic arch in 1.25 mm imaging. Coronal and sagittal reformats are submitted, MIP imaging also reviewed. Additional multiplanar reformats of the carotid arteries are villa bmitted. NASCET criteria utilized. All CT scans at [facility] use at least one of these dose optimization techniques: automated exposure control; mA and/or kV adjustment per patient size (includ es targeted exams where dose is matched to clinical indication); or iterative reconstruction. CONTRAST: Omnipaque 350; 100 mL IV. DLP: 276.91 mGy.cm COMPARISON: 06/27/2020, carotid ultrasound 04/02/2023 Right carotid: Common carotid artery: Arises normally from the innominate artery. No significant plaque or stenosis. Internal carotid artery: Increasing plaque at the bifurcation. Calcified plaque through the bifurcati on into the proximal internal and external carotid arteries. Stenosis in the proximal ICA estimated n ear 40%. External carotid artery: Mild stenosis. Increasing plaque in the proximal ECA. Stenosis estimated at 50%. Left carotid: Common carotid artery: Arises normally from the aortic arch. No significant stenosis. Internal carotid artery: Calcified plaque in the proximal 2 cm. Stenosis estimated similar to the burt or examination at about 64%. External carotid artery: Patent. Increasing plaque in the proximal ECA with stenosis estimated near 7 0%. Right vertebral artery: Small caliber but patent. Left vertebral artery: Dominant. Scattered plaque. Subclavian arteries: No stenosis or abnormality identified. Upper thorax: Stable pleural tagging at the LEFT apex. No change since 06/27/2020. Atherosclerotic christine que within the aorta. Thyroid gland: Normal. 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 C4 anterolisthe sis by 3 mm. Skull base: Negative. IMPRESSION: 1. LEFT cervical ICA stenosis estimated at 64%. Similar to the prior study. 2. RIGHT cervical ICA stenosis estimated at 40%. Minimal progression since the prior study. 3. Small caliber distal RIGHT vertebral artery similar to the prior study. Similar to the prior stud y.
[2023-04-09 15:17] LABS: Blood Urea Nitrogen 15 mg/dL (8-23)
[2023-04-09] MEDS: iohexol 350 mg/mL 500 mL Btl (per mL) IV (15:40)
== END 2023-04-09 14:45 | disposition home or self-care (01) ==
LOC: RAD 14:45
PROVIDERS: PCP Family Medicine; Visit Provider Internal Medicine Cardiovascular Disease
DX: I65.23 Occlusion and stenosis of bilateral carotid arteries (principal)
CPT/HCPCS: 70498; 82565; 84520; Q9967

== ENCOUNTER → 2023-04-14 12:33 | Outpatient (BNVA) | payer MEDICARE, SELFPAY | PROVIDERS: PCP Family Medicine; Visit Provider Internal Medicine | DX: I35.0 Nonrheumatic aortic (valve) stenosis (principal); I10 Essential (primary) hypertension; I48.0 Paroxysmal atrial fibrillation; Z79.01 Long term (current) use of anticoagulants; Z79.82 Long term (current) use of aspirin; E78.5 Hyperlipidemia, unspecified; I65.23 Occlusion and stenosis of bilateral carotid arteries; Z87.891 Personal history of nicotine dependence | CPT/HCPCS: 99214 ==

== ENCOUNTER 2023-04-22 05:49 | Outpatient (CLI) | payer MEDICARE, SELFPAY ==
[2023-04-22] VITALS (35 sets, daily range): BP systolic 141–186; BP diastolic 62–100; PULSE 64–85; RESP 12–26; TEMP 530.9–987.7; O2SAT 79–96; BMI 33.5
[2023-04-22] MEDS: diphenhydrAMINE 50 mg Capsule PO (06:20)
[2023-04-22] MEDS: aspirin 325 mg Tablet PO (06:20)
[2023-04-22 06:22] LABS: Basophils # 0.1 10^3/uL (0.0-0.1); Basophils % 0.7 %; Eosinophils # 0.2 10^3/uL (0.0-0.8); Eosinophils % 1.8 %; Hematocrit 46.3 % (37-53); Lymphocytes % 34.3 %; Mean Corpuscular Hemoglobin 31.2 pg (27-33); Mean Corpuscular Volume 94.3 fl (82-101); Monocytes # 0.8 10^3/uL (0.2-0.9); Monocytes % 8.7 %; Neutrophils # 4.65 10^3/uL (1.8-7.7); Neutrophils % 53.8 %; Nucleated Red Blood Cells % 0 %; Platelet Count 186 10^3/cmm (157-399); Red Blood Count 4.91 10^6/uL (3.85-5.65); Red Cell Distribution Width 13.7 % (12.1-15.1); White Blood Count 8.65 10^3/uL (3.29-11.43)
[2023-04-22 06:38] LABS: Anion Gap 15.9 (5-19); Blood Urea Nitrogen 19 mg/dL (8-23); Calcium 9.2 mg/dL (8.5-10.5); Carbon Dioxide 25 mmol/L (22-29); Chloride 100 mmol/L (98-107); Glucose 96 mg/dL (65-115); Osmolality Calculated 286 mOsm/kg (285-295); Potassium 3.9 mmol/L (3.5-5.1); Sodium 137 mmol/L (136-145)
--- NOTE | 2023-04-22 07:00 | XACV_ITS ---
Exam Room: 2 Ht: 188 cm Wt: 118 kg BSA: 2.52 m2 Gender: Male : 1935 Any Known Allergies: No known allergies Exam Priority: Routine Procedure(s): Procedure Description: Diagnostic procedure Procedure Description: Right Heart Catheterization Procedure Description: O2 saturation Procedure Description: Coronary Angiography Diagnostic Cath Status: Elective Diagnostic Findings * INDICATION: Severe aortic stenosis. * Left Main is short. No significant disease. * Circumflex has mild luminal irregularities. 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 No significant stenosis seen. * Mid Left Anterior Descending: minimal 30% stenosis, MERRILL: 3 flow. * Coronary angiography shows right dominance. Conclusions 1. Nonobstructive coronary artery disease.. 2. Elevated right and left sided cardiac pressures. 3. Mild post capillary pulmonary hypertension. Recommendations * We will refer patient for TAVR evaluation. * Outpatient cardiology follow up in 2 weeks. Interventional RX Recommendation: other cardiac therapy w/o CABG/PCI Diagnostic RX Recommendation: other cardiac therapy w/o CABG/PCI Pressures Phase:Rest AO : 135 / 73 ( 103 ) @ 7:33:00 AM RV : 45 / 12 / 20 @ 7:18:00 AM PA : 47 / 23 ( 33 ) @ 7:17:00 AM RA : a wave = 18 v wave = 21 mean = 17 @ 7:18:00 AM PCW : a wave = 23 v wave = 30 mean = 22 @ 7:16:00 AM O2 Content Phase:Rest PA : O2 Content O2: 76.2 @ 7:17:00 AM Saturations Phase:Rest AO : 93 @ 7:33:00 AM PA : 76 @ 7:17:00 AM Cardiac Output Phase:Rest Deuce : 8 @ 8:03:03 AM Deuce Cardiac Index: 3 @ 8:03:03 AM Flow Phase:Rest Qp : 8 @ 8:03:03 AM Qs : 8 @ 8:03:03 AM Clinical Evaluation EBL: 5mL-10mL Procedural Details Procedure Consent Obtained. Pre-Procedure Time Out. Identified patient by full name and date of as verbalized by the patient/guarantor. Does the consent match the physician's order: Yes. Accurate & Complete Informed Consent: Yes. Inpatient/Outpatient History & Physical on Chart: Yes. If H&P is completed, is and addenduem needed: No. Visualize and Verify Site with Patient/Guarantor: N/A. Relevant Radiology Images available: Yes. The risks, benefits, and alternatives of sedation and/or procedure were discussed by physician. The patient agrees to continue. Procedure started. [facility] Clinical Fraility Score: 3: Managing Well. Cryptologic Support Specialist Indications: Valvular Disease (Aortic Stenosis). Chest Pain Symptom Assessment: Asymptomatic. Cardiovascular Instability: No. Correct patient, site and procedure confirmed by cath team. PERRLA. Strong, equal hand cook pressure bilaterally. Lungs clear x 5 lobes. IV Site on Arrival: 20 gauge in the left anticubital. IV Site on Arrival: 20 gauge in the right anticubital to be used for the RHC. IV Fluids: 0.9% NaCl at KVO. 0 mL infused prior to school laboratory technician. Pre Procedural Pulses: bilateral dorsalis pedis was 3+. Pre Procedural Pulses: bilateral posterior tibial was 3+. Pre Procedural Pulses: bilateral radial was 3+. right groin was prepped with chloroprep then draped in the usual sterile fashion. right radial was prepped with chloroprep then draped in the usual sterile fashion. Physician notified. Baseline sample Acquired. HR: 81 BPM. Patient's family in CPRU room #3. Dr. King will update at the completion of the procedure. Equipment: 6F - Radial. Cardiac Cath Pack. ACIST Manifold Kit Model BT 2000. Heparinized Saline (2 units/mL), 1000 mL bag. Rancho Dickey RN, circulating with Ghassan Ba RN, VASCULAR TECHNOLOGIST SONOGRAPHER. IV in the right AC unable to flush. It was discontinued with cath tip intact. Physician arrived. Physician scrubbed in. Immediate Pre-Procedure Time Out. Correct Patient: Yes; Correct Procedure: Yes; Correct Site: Yes; Correct Patient Position: Yes; Correct Supplies: Yes; Dried Flammable Prep: Yes; Blood Products Available: N/A. A 20 gauge IV was started in the left anticubital using aseptic technique. Kit wire in through the existing IV in the right AC. PIV catheter out over the kit wire. Leming-Alexis MON catheter inserted. Oximetry samples were obtained. Normal venous range: 60-85%. Normal arterial range: 95-100%. Pressure measurements obtained. [place] guidewrie in through the Leming. ABG drawn and sent with respiratory therapy. Leming-Alexis out. Lidocaine 1% infiltrated to the right radial. Arterial access obtained. Oxygen started at 2liters/min via nasal canula. A 5 senegalese JR4 catheter in over the exchange J wire. Exchange J wire out. Hand injection performed of the right arm. 0.035 260cm stiff angled glidewire in. JR 4 advanced over the stiff angled glidewire. Stiff angled glidewire out, exchange J wire in. Catheter removed over the exchange J wire. Will abort radial access and move to femoral access. Lidocaine 1% infiltrated to the right groin. Arterial access obtained with micropuncture set. A 5 senegalese JR4 catheter in over the exchange J wire. Multiple views taken of right coronary artery. Catheter removed over the exchange J wire. A 5 senegalese JL4 catheter in over the exchange J wire. Multiple views taken of left coronary artery. Catheter removed over the exchange J wire. A 5 senegalese 3DRC catheter in over the exchange J wire. Catheter removed over the exchange J wire. A 5 senegalese AL1 catheter in over the exchange J wire. Multiple views taken of right coronary artery. Catheter removed over the exchange J wire. Dr. King scrubbed out. A TR Band was successful obtaining hemostatsis at the Right Radial artery insertion site. A Manual Compression was successful obtaining hemostatsis at the Right Femoral artery insertion site. PERRLA. Strong, equal hand cook pressure bilaterally. No VTE prophylaxis required. Medication's Wasted: Lidocaine 1% = 3 mL. Medication's Wasted: Heparin = 1000 Units. Medication's Wasted: Nitro = 49.8 mg. Medication's Wasted: Other = Fentanyl 50 mcg. Total IV fluids: 50 mL. Post-op diagnosis: Non obstructive CAD/Severe aortic stenosis. Complications: none. Estimated blood loss: 5mL-10mL. Responsiveness - Normal response to verbal stimuli; alert and oriented, PERRLA. Airway - Unaffected, no intervention required; spontaneous ventilation. Circulation: W/N/L, pulses unchanged. Nausea/Vomiting: No. A Manual Compression was successful obtaining hemostatsis at the Right Brachial Vein insertion site. Post Procedure: Pulses reassessed and unchanged. Procedure completed. Patient transferred by bed to 1st floor. Vital chart was stopped. Access Site Site: Right Brachial Vein Sheath Size: 6 Fr Hemostasis Method: Manual Compression Hemostasis Success: Successful Site: Right Radial artery Sheath Size: 5 Fr Hemostasis Method: TR Band Hemostasis Success: Successful Site: Right Femoral artery Sheath Size: 5 Fr Hemostasis Method: Manual Compression Hemostasis Success: Successful Procedure Medications Start: 7:12 AM Stop: 7:12 AM Medication: Versed Amount: 1 mg Route: I.V. Start: 7:20 AM Stop: 7:20 AM Medication: Versed Amount: 1 mg Route: I.V. Start: 7:20 AM Stop: 7:20 AM Medication: Fentanyl Amount: 25 mcg Route: I.V. I, the attending physician, have reviewed and verified all procedure medications. Yes, all medications given per verbal order History/Risk Factors Hypertension: Yes Dyslipidemia: Yes Peripheral Arterial Disease (PAD): No Myocardial Infarction (MN): No Obesity: Yes Renal Disease: No Tobacco Use: Former Prior Interventions PCI: No CABG: No Valve Surgery: No Report Signatures Finalized by Hardeep King MD on 04/28/2023 01:37 PM
--- NOTE | 2023-04-22 07:05 | W.PM.OPSUD ---
Surgery/Procedure H&P Update DATE OF PROCEDURE: April 22, 2023 DATE H&P PERFORMED: 04/14/23 H&P UPDATE INFORMATION: I have reviewed H&P completed within last 30 days, I have examined patient prior to procedure and No changes to prior documentation PREOP DIAGNOSIS: Severe aortic stenosis PRIMARY INDICATION FOR PROCEDURE: Severe aortic stenosis PLANNED PROCEDURE: Operation Date: 04/22/23 07:00 Proposed Procedures p left and right cath 48207,I35.0(Bilateral) - Hardeep King M.D Possible percutaneous coronary intervention PATIENT REASSESSED PRIOR TO SEDATION, WITH NO CHANGE NOTED: Yes PHYSICAL EXAM: alert, oriented x 3, clear to auscultation bilaterally and regular rate & rhythm OTHER PERTINENT EXAM FINDINGS: Grade 3/6 systolic murmur AIRWAY EVAL/ANESTHESIA PLAN: normal airway, ASA IV, Local Anesthesia, Risks, benefits & alternatives of sedation and/or procedure discussed and Patient agrees to continue as planned ADDITIONAL INFORMATION: Moderate sedation
[2023-04-22 07:29] LABS: Alveolar-Arterial Oxygen Gradi 5.1 mmHg (5-10); Arterial Blood Gas Hematocrit 45.7 % (42-52); Blood Gas Operator Identificat glc; Blood Gas Sample Site Not specified; Blood Gas Sample Type Arterial; Carboxyhemoglobin 1.4 %THgb (0.4-20.1); HGB O2 Sat 91.8 % (95-100); Methemoglobin 0.2 % (0.4-1.5); Total Hemoglobin 14.9 g/dL (14-18)
[2023-04-22 07:32] LABS: Arterial Blood Gas Hematocrit 45.5 % (42-52); Blood Gas Operator Identificat glc; Blood Gas Sample Site Not specified; Blood Gas Sample Type Not specified; Carboxyhemoglobin 1.5 %THgb (0.4-20.1); HGB O2 Sat 74.8 % (95-100); Methemoglobin 0.3 % (0.4-1.5); Total Hemoglobin 14.9 g/dL (14-18)
--- NOTE | 2023-04-22 08:44 | PC.NURSE ---
received from cardiac lab aid via bed at 0825.report received.pt is alert and awake and oriented x 4 .denies pain at present.afib at controlled rate on monitor.right brachial vein with bulky pressure drsg on.no hematoma noted.right wrist with tr band on and inflated.right hand is warm to touch and with brisk capillary refill.palpable radial pulse noted distal to tr band.no hematoma noted.right groin with drsg dry and intact.sheath pulled at 0800 in lab aid.no hematoma noted.right leg is warm to touch and with brisk capillary refill. palpable dp pulse noted.pt instructed in activity restrictions s/p radial and femoral artery procedures...and instructed to notify staff for any bleeding,pain,sob,or for any concerns at all.pt verb understanding of instructions.
--- NOTE | 2023-04-22 14:19 | PC.NURSE ---
pt adm on 04/22/13.not 04/21/23
--- NOTE | 2023-04-22 14:29 | PC.NURSE ---
right brachial drsg removed.no hematoma noted.right radial tr band slowly deflated and eventually removed at 1330.no hematoma noted.site dressed with bandaids
--- NOTE | 2023-04-22 16:35 | PC.NURSE ---
discharge instructions given and explained.pt and daughter verb understanding of instructions.discharged to exit via w/c at this time.daughter to drive pt home
== END 2023-04-22 16:37 | disposition home or self-care (01) ==
LOC: CCL 05:54 → CSU 08:27
PROVIDERS: PCP Family Medicine; Visit Provider Internal Medicine
DX: I35.0 Nonrheumatic aortic (valve) stenosis (principal); I25.10 Atherosclerotic heart disease of native coronary artery without angina pectoris; I27.20 Pulmonary hypertension, unspecified; I10 Essential (primary) hypertension; E78.5 Hyperlipidemia, unspecified; E66.9 Obesity, unspecified; Z68.33 Body mass index [BMI] 33.0-33.9, adult; Z87.891 Personal history of nicotine dependence; Z79.82 Long term (current) use of aspirin
CPT/HCPCS: 36415; 80048; 82810; 85025; 93456; 96361; 96365; 99152; 99153; C1751; C1769; C1887; C1894; J1644; J2250; J3010; J3490; J7030; Q0163; Q9967

== ENCOUNTER → 2023-09-04 10:07 | Outpatient (BNVA) | payer MEDICARE, SELFPAY | PROVIDERS: PCP Family Medicine; Visit Provider Internal Medicine Cardiovascular Disease | DX: R00.1 Bradycardia, unspecified (principal); I48.0 Paroxysmal atrial fibrillation; Z95.3 Presence of xenogenic heart valve; Z79.01 Long term (current) use of anticoagulants; E78.5 Hyperlipidemia, unspecified; I10 Essential (primary) hypertension; I65.22 Occlusion and stenosis of left carotid artery; Z87.891 Personal history of nicotine dependence; Z79.82 Long term (current) use of aspirin | CPT/HCPCS: 99214 ==

== ENCOUNTER → 2023-10-21 08:31 | Outpatient (BNVA) | payer MEDICARE, SELFPAY | PROVIDERS: PCP Family Medicine; Visit Provider Nurse Practitioner Family | DX: L57.0 Actinic keratosis (principal); L82.0 Inflamed seborrheic keratosis; L57.8 Other skin changes due to chronic exposure to nonionizing radiation; L81.4 Other melanin hyperpigmentation; L82.1 Other seborrheic keratosis; L72.0 Epidermal cyst; L73.8 Other specified follicular disorders; L91.8 Other hypertrophic disorders of the skin; D18.01 Hemangioma of skin and subcutaneous tissue; D69.2 Other nonthrombocytopenic purpura; I87.2 Venous insufficiency (chronic) (peripheral); Z85.828 Personal history of other malignant neoplasm of skin | CPT/HCPCS: 17000; 17110; 99213 ==

== ENCOUNTER → 2023-12-24 09:15 | Outpatient (BNVA) | payer MEDICARE, SELFPAY | PROVIDERS: PCP Family Medicine; Visit Provider Nurse Practitioner Family | DX: D48.5 Neoplasm of uncertain behavior of skin (principal); L57.8 Other skin changes due to chronic exposure to nonionizing radiation; L82.1 Other seborrheic keratosis; L72.0 Epidermal cyst; L73.8 Other specified follicular disorders; L91.8 Other hypertrophic disorders of the skin; D18.01 Hemangioma of skin and subcutaneous tissue; D69.2 Other nonthrombocytopenic purpura; I87.2 Venous insufficiency (chronic) (peripheral); L57.0 Actinic keratosis; Z85.828 Personal history of other malignant neoplasm of skin | CPT/HCPCS: 11102; 17000; 99213 ==

== ENCOUNTER → 2024-01-26 09:57 | Outpatient (BNVA) | payer MEDICARE, SELFPAY | PROVIDERS: PCP Family Medicine; Visit Provider Family Medicine | DX: R01.1 Cardiac murmur, unspecified (principal); E78.5 Hyperlipidemia, unspecified; I35.0 Nonrheumatic aortic (valve) stenosis; I48.0 Paroxysmal atrial fibrillation; I65.22 Occlusion and stenosis of left carotid artery; Z79.01 Long term (current) use of anticoagulants; C67.9 Malignant neoplasm of bladder, unspecified; J44.9 Chronic obstructive pulmonary disease, unspecified; E03.9 Hypothyroidism, unspecified | CPT/HCPCS: 80053; 80061; 84443; 85025 ==

== ENCOUNTER → 2024-02-12 08:50 | Outpatient (BNVA) | payer MEDICARE, SELFPAY | PROVIDERS: PCP Family Medicine; Visit Provider Nurse Practitioner Family | DX: L57.8 Other skin changes due to chronic exposure to nonionizing radiation (principal); L81.4 Other melanin hyperpigmentation; Z85.828 Personal history of other malignant neoplasm of skin; L72.0 Epidermal cyst; B07.8 Other viral warts; L29.89 Other pruritus; L53.8 Other specified erythematous conditions; L82.0 Inflamed seborrheic keratosis; L57.0 Actinic keratosis | CPT/HCPCS: 10060; 17000; 17110; 99213 ==

== ENCOUNTER → 2024-02-16 14:55 | Outpatient (BNVA) | payer MEDICARE, SELFPAY | PROVIDERS: PCP Family Medicine; Visit Provider Internal Medicine | DX: E78.5 Hyperlipidemia, unspecified (principal); I48.0 Paroxysmal atrial fibrillation; I65.23 Occlusion and stenosis of bilateral carotid arteries; I10 Essential (primary) hypertension; Z95.2 Presence of prosthetic heart valve; Z87.891 Personal history of nicotine dependence; Z79.01 Long term (current) use of anticoagulants | CPT/HCPCS: 99214 ==

== ENCOUNTER 2024-04-01 13:26 | Outpatient (CLI) | payer MEDICARE, SELFPAY ==
[2024-04-01 13:44] LABS: Basophils # 0.1 10^3/uL (0.0-0.1); Basophils % 0.5 %; Eosinophils # 0.1 10^3/uL (0.0-0.8); Eosinophils % 0.6 %; Lymphocytes # 1.4 10^3/uL (0.8-4.8); Lymphocytes % 14.5 %; Mean Corpuscular HGB Conc 32.3 g/dL (30-55); Mean Corpuscular Hemoglobin 30.4 pg (27-33); Mean Corpuscular Volume 94.1 fl (82-101); Mean Platelet Volume 11.6 fL (7.4-10.4); Monocytes # 0.5 10^3/uL (0.2-0.9); Monocytes % 5.2 %; Neutrophils # 7.63 10^3/uL (1.8-7.7); Neutrophils % 78.3 %; Nucleated Red Blood Cells % 0 %; Platelet Count 150 10^3/cmm (157-399); Red Blood Count 4.57 10^6/uL (3.85-5.65); Red Cell Distribution Width 13.3 % (12.1-15.1); White Blood Count 9.76 10^3/uL (3.29-11.43)
[2024-04-01 14:09] LABS: Thyroid Stimulating Hormone 3.78 uIU/mL (0.27-4.20)
== END 2024-04-01 13:27 | disposition home or self-care (01) ==
LOC: LAB 13:27
PROVIDERS: PCP Family Medicine; Visit Provider Family Medicine
DX: Z95.3 Presence of xenogenic heart valve (principal); R01.1 Cardiac murmur, unspecified; I35.0 Nonrheumatic aortic (valve) stenosis; I10 Essential (primary) hypertension; Z79.01 Long term (current) use of anticoagulants
CPT/HCPCS: 36415; 84443; 85025

== ENCOUNTER 2024-07-16 09:04 | Outpatient (CLI) | payer MEDICARE, SELFPAY ==
--- NOTE | 2024-07-16 09:15 | USCV_ITS ---
Audreyambrose Cherry Age: 88 Gender: M : 1935 Exam Date: 07/16/2024 09:22 Ordering Phys: Hardeep King M.D ([email or web address]) Technologist: JUANA Exam Location: [facility] [place] Indication: stenosis Risk Factors: Previous Vascular Surgery: Right Brachial BP: / Left Brachial BP: / Right Left Velocity (cm/s) Spectral Plaque Velocity (cm/s) Spectral Plaque Syst/Diast Broadening Syst/Diast Broadening 75.80/ 11.20 Prox CCA 59.30 / 13.50 82.50/ 12.30 Mid CCA 57.20 / 12.40 86.70/ 17.00 Distal CCA 56.50 / 13.80 106.10/13.10 Prox ICA 66.30 / 10.20 107.80/22.10 Mid ICA 70.40 / 16.10 71.20/ 18.30 Distal ICA 76.80 / 21.50 277.90 ECA 114.00 1.20 ICA/CCA 1.20 Antegrade Vertebral Antegrade 45.60/ 6.30 cm/s 45.80/ 8.50 cm/s Tri Subclavian Tri 117.0 169.6 0 0 CONCLUSIONS Right ICA stenosis <50%.Moderate atheromatous plaque right carotid bulb/ICA. Left ICA stenosis <50%. Moderate atheromatous plaque left carotid bulb/ICA. Ulcerated Atheromatous Plaque Left carotid bulb Normal antegrade Doppler flow noted in the right vertebral artery. Normal antegrade Doppler flow noted in the left vertebral artery. Diego Calvo MD (Electronically Signed) Final Date: 16 Jul 2024 11:02 S
== END 2024-07-16 09:05 | disposition home or self-care (01) ==
PROVIDERS: PCP Family Medicine; Visit Provider Internal Medicine
DX: I65.23 Occlusion and stenosis of bilateral carotid arteries (principal)
CPT/HCPCS: 93880

== ENCOUNTER → 2024-08-17 13:13 | Outpatient (BNVA) | payer MEDICARE, SELFPAY | PROVIDERS: PCP Family Medicine; Visit Provider Internal Medicine | DX: I65.23 Occlusion and stenosis of bilateral carotid arteries (principal); I35.0 Nonrheumatic aortic (valve) stenosis; I48.0 Paroxysmal atrial fibrillation; Z79.01 Long term (current) use of anticoagulants; Z79.82 Long term (current) use of aspirin; E78.5 Hyperlipidemia, unspecified; I10 Essential (primary) hypertension; Z87.891 Personal history of nicotine dependence | CPT/HCPCS: 99214 ==

== ENCOUNTER → 2025-01-27 11:47 | Outpatient (BNVA) | payer MEDICARE, SELFPAY | PROVIDERS: PCP Family Medicine; Visit Provider Family Medicine | DX: F39 Unspecified mood [affective] disorder (principal); I35.0 Nonrheumatic aortic (valve) stenosis; E78.5 Hyperlipidemia, unspecified; Z79.01 Long term (current) use of anticoagulants; E03.9 Hypothyroidism, unspecified | CPT/HCPCS: 80053; 80061; 82607; 84443; 85025 ==

== ENCOUNTER 2025-02-15 13:23 | Outpatient (CLI) | payer MEDICARE, SELFPAY ==
--- NOTE | 2025-02-15 17:00 | USCV_ITS ---
Dilip Will Age: 89 Gender: M : 1935 Exam Date: 02/15/2025 13:47 Ordering Phys: Hardeep King M.D ([email or web address]) Technologist: JOHN Exam Location: [facility] [place] Indication: Stenosis Risk Factors: Previous Vascular Surgery: Right Brachial BP: / Left Brachial BP: / Right Left Velocity (cm/s) Spectral Plaque Velocity (cm/s) Spectral Plaque Syst/Diast Broadening Syst/Diast Broadening 75.50/ 13.00 Prox CCA 45.30 / 7.80 61.20/ 9.50 Mid CCA 60.70 / 11.80 50.80/ 12.60 Distal CCA 45.20 / 11.90 130.10/17.00 Prox ICA 66.50 / 13.00 46.60/ 11.30 Mid ICA 56.40 / 9.30 50.20/ 17.90 Distal ICA 61.00 / 15.20 152.60 ECA 113.10 2.60 ICA/CCA 1.50 Antegrade Vertebral Antegrade 43.40/ 8.10 cm/s 65.00/ 15.70 cm/s Tri Subclavian Tri 99.50 84.20 FINDINGS Comparison:. 07/16/24 Moderate bilateral calcfied irregular plaque in the bifurcations. Mild elevation of ICA velocity. Antegrade vertebral arteries. CONCLUSIONS Bilateral ICA stenosis less than 50%. Moderate carotid plaque in the bifurcations. No interval change in stenosis since prior exam. Dr. Carla Polo DO (Electronically Signed) Final Date: 15 February 2025 15:30 S
== END 2025-02-15 13:24 | disposition home or self-care (01) ==
LOC: RAD 13:24
PROVIDERS: PCP Family Medicine; Visit Provider Internal Medicine
DX: I65.23 Occlusion and stenosis of bilateral carotid arteries (principal)
CPT/HCPCS: 93880